=== PATIENT | female | born 1995 | race Caucasian/White ===

== ENCOUNTER 2018-01-01 16:40 | Emergency (ER) | payer OTHER ==
[~2018-01-01] VITALS: Ht 175.3 cm; Wt 60.0 kg
[~2018-01-01 16:40] MED LIST: CEPH500C3 PO
[2018-01-01 17:11] VITALS: BP 133/72; PULSE 87; RESP 18; TEMP 98.8; O2SAT 99
== END 2018-01-01 20:32 | disposition left against medical advice (07) ==
LOC: NED 16:40
DX: Z03.89 Encounter for observation for other suspected diseases and conditions ruled out (principal)
CPT/HCPCS: 99281

== ENCOUNTER 2018-01-11 06:18 | Emergency (ER) | payer OTHER ==
[~2018-01-11] VITALS: Ht 172.7 cm; Wt 60.0 kg
[2018-01-11 06:37] VITALS: BP 115/56; PULSE 70; RESP 18; TEMP 98.6; O2SAT 100
--- NOTE | 2018-01-11 07:02 | PD ---
HPI Chief Complaint: Cold / Flu Symptoms Time Seen by Provider: 06:59 Travel History International Travel<30 days: No Contact w/Intl Traveler<30days: No Traveled to known affect area: No History of Present Illness HPI 22-year-old female presents to the emergency department with 2 complaints. First complaint of bumps and pain to the back of her tongue 2 days. Mentions she was treated for strep throat twice 1 month ago. Also states she was tested for mono and the test was negative. She denies sore throat, lump in throat, difficulty swallowing, unusual drooling. Reports right ear pain. Denies cough , but reports coughing up yellow colored phlegm. Denies nasal congestion. Denies fevers, vomiting. Second complaint is right flank pain. Says she has chronic flank pain, prior to starting her periods, but her period just ended. She denies dysuria, urgency, frequency, hematuria. Does mention she noticed that her urine was cloudy this morning. Denies abdominal pain. Denies abnormal vaginal discharge or odor. Rates throat pain 8/. Has not taken any medications or trying treatments to alleviate her symptoms. No known relieving factors. Tongue pain is aggravated by swallowing. No known allergies. Primary care provider is Dr. Joseph. Denies significant past medical history. Has no other medical complaints. No other modifying factors or associated signs and symptoms. PFSH Past Medical History Medical History: Denies Significant Hx Diminished Hearing: No Immunizations Current: Yes ?: Not LMP: 01/06/18 Past Surgical History Surgical History: No Previous Surgery Social History Alcohol Use: Yes Tobacco Use: No Substance Use: No Allergies-Medications (Allergen,Severity, Reaction): Coded Allergies: No Known Allergies (Unverified , 01/27/15) Reported Meds & Prescriptions Reported Meds & Active Scripts Active Ibuprofen 800 Mg Tab 800 Mg PO Q6HR PRN Magic Mouthwash Pediatric/Adult Liq (Lidocaine/Diphenhydr/Alum/Mg/Simeth) 60 Ml Susp 5 Ml SWISH-SWAL Q3HR PRN Each 5mL contains: Diphenydramine 4.5mg, Viscous Lidocaine 2% 10mg, Maalox Advanced Regular Strength 2.7ml Pyridium (Phenazopyridine HCl) 100 Mg Tab 100 Mg PO Q8H PRN 3 Days Keflex (Cephalexin) 500 Mg Cap 500 Mg PO Q12H 7 Days Keflex (Cephalexin Monohydrate) 500 Mg Cap 1 Tab PO Q6 Review of Systems Except as stated in HPI: all other systems reviewed are Neg Physical Exam Narrative GENERAL: Well-nourished, well-developed female patient, in no acute distress; afebrile, nontoxic-appearing SKIN: Warm and dry. No rash. HEAD: Atraumatic. Normocephalic. EYES: Pupils equal and round. No scleral icterus. No injection or drainage. ENT: Mucosa pink and moist. No erythema or exudates. No uvular edema. No uvular , palatal, or tonsillar deviation. Airway patent. EARS: Bilateral pinnae and external canals appear within normal limits. Bilateral tympanic membranes without erythema, dullness or perforation. NECK: Trachea midline. No lymphadenopathy. CARDIOVASCULAR: Regular rate and rhythm. No murmur appreciated. RESPIRATORY: No accessory muscle use. Clear to auscultation. Breath sounds equal bilaterally. No retractions or tachypnea. GASTROINTESTINAL: Abdomen soft, non-tender, nondistended. Hepatic and splenic margins not palpable. Bowel sounds are active 4 quadrants. BACK: Right CVA tenderness. MUSCULOSKELETAL: No obvious deformities. No clubbing. No cyanosis. No edema. NEUROLOGICAL: Awake and alert. Oriented 3. No obvious cranial nerve deficits. Motor grossly within normal limits. Normal speech. Moves all extremities. 5/5 strength to all extremities. PSYCHIATRIC: Appropriate mood and affect; insight and judgment normal. Data Data Last Documented VS Vital Signs Date Time Temp Pulse Resp B/P (MAP) Pulse Ox O2 Delivery O2 Flow Rate FiO2 01/11/18 09:15 67 17 100/50 (67) 98 01/11/18 06:37 98.6 Orders Orders Group A Rapid Strep Screen (01/11/18 07:10) Urinalysis - C+S If Indicated (01/11/18 07:10) Ed Urine Pregnancytest Poc (01/11/18 07:10) Urine Culture (01/11/18 07:15) Strep Culture (Group A) (01/11/18 07:15) Ed Discharge Order (01/11/18 08:34) Lidocaine 1% Inj (50 Ml) (Xylocaine 1% I (01/11/18 08:45) Ceftriaxone Inj (Rocephin Inj) (01/11/18 08:45) Lidocaine 1% Inj (Xylocaine 1% Inj) (01/11/18 08:38) Labs Laboratory Tests Test 01/11/18 07:15 Urine Color YELLOW Urine Turbidity HAZY Urine pH 6.0 Urine Specific [place] 1.017 Urine Protein NEG mg/dL Urine Glucose (UA) NEG mg/dL Urine Ketones NEG mg/dL Urine Occult Blood SMALL Urine Nitrite NEG Urine Bilirubin NEG Urine Urobilinogen LESS THAN 2.0 MG/DL Urine Leukocyte Esterase LARGE Urine RBC 5 /hpf Urine WBC /hpf Urine WBC Clumps MANY Urine Squamous Epithelial Cells > 8 /hpf Urine Bacteria OCC /hpf Urine Mucus FEW /lpf Microscopic Urinalysis Comment CULTURE INDICATED MDM Medical Decision Making Medical Screen Exam Complete: Yes Emergency Medical Condition: Yes Medical Record Reviewed: Yes Differential Diagnosis Tongue pain, sore throat, strep pharyngitis, viral pharyngitis, pyelonephritis, UTI, chronic flank pain Narrative Course 22-year-old female with pain and lump to the back of her tongue. She was treated for strep throat twice 2 months ago. She reports having a mono screen done which was negative. Patient has right-sided CVA tenderness on exam. Noticed that her urine was cloudy this morning. Denies dysuria, fever, vomiting. Rapid strep and urinalysis ordered. I offered the patient pain medication and she declined. Rapid strep negative. Urinalysis with signs of infection. Reflex to culture. Rocephin 1 g IM administered in the ER. Keflex, ibuprofen, Magic mouthwash prescribed for home. Instructed patient to follow-up with ENT. Instructed patient to follow up with primary care provider. Patient verbalizes understanding and agreement with treatment plan. Patient is medically cleared and stable for discharge. Discussed reasons to return to the emergency department. Patient agrees with treatment plan. The patients vital signs are stable and the patient is stable for outpatient follow-up and treatment. Patient discharged home, stable and in no acute distress. Diagnosis Primary Impression: Tongue pain Additional Impression: UTI (urinary tract infection) Qualified Codes: N39.0 - Urinary tract infection, site not specified Referrals: Ear / Nose / Throat Specialist Primary Care Physician Patient Instructions: General Instructions, Urinary Tract Infection in Women ( ED) Departure Forms: Tests/Procedures, Work Release Enter return to work date: Jan 13, 2018 Additional Instructions: Take antibiotics as prescribed and complete full course Take Pyridium for bladder spasms: Pyridium will turn your urine bright orange Drink plenty of fluids Maintain good personal hygiene Follow-up with primary care provider Return to the emergency department immediately with worsening of symptoms Ibuprofen or Tylenol as directed and as needed to reduce fever; may alternate ibuprofen and Tylenol as needed every 3 hours to minimize fever [id number] cold/flu medications as directed and as needed for symptom management Get plenty of sleep/rest Drink plenty of fluids to prevent dehydration; such as Gatorade, Powerade, Pedialyte [place] diet to encourage nutrition such as crackers, fruit, applesauce, toast, soup etc. Use an air humidifier/turn off ceiling fans Follow-up with your primary care provider within 1 day Return immediately to the emergency department with worsening of symptoms Med/Other Pt SpecificInfo: Prescription(s) given Scripts Ibuprofen (Ibuprofen) 800 Mg Tab 800 MG PO Q6HR Y for PAIN, #30 TAB 0 Refills Prov: Katharine Son 01/11/18 Csmyxplqlqldizg-Pysgeqtwb-Tem-Alum-Simeth Liq (Magic Mouthwash Pediatric/Adult Liq) 60 Ml Susp 5 ML SWISH-SWAL Q3HR Y for SORE THROAT, #60 ML 0 Refills Each 5mL contains: Diphenydramine 4.5mg, Viscous Lidocaine 2% 10mg, Maalox Advanced Regular Strength 2.7ml Prov: Katharine Son 01/11/18 Phenazopyridine (Pyridium) 100 Mg Tab 100 MG PO Q8H Y for DYSURIA for 3 Days, #9 TAB 0 Refills Prov: Katharine Son 01/11/18 Cephalexin (Keflex) 500 Mg Cap 500 MG PO Q12H for Infection for 7 Days, #14 CAP 0 Refills Prov: Katharine Son 01/11/18 Disposition: 01 DISCHARGE HOME Condition: Stable Katharine Son Jan 11, 2018 07:02
[2018-01-11 07:52] LABS: BILIRUBIN, URINE NEG (NEG); BLOOD, URINE SMALL (NEG); GLUCOSE,URINE NEG (NEG); KETONE, URINE NEG (NEG); NITRITE,URINE NEG (NEG); URINE COLOR YELLOW (YELLW/STRAW); URINE LEUKOCYTE ESTERASE LARGE (NEG)
[2018-01-11 07:59] LABS: MUCUS URINE FEW /lpf (OCC); WHITE BLOOD CELL CLUMPS MANY
[2018-01-11 08:01] LABS: BACTERIA, URINE OCC /hpf; SQUAMOUS EPITHELIAL CELL URINE > 8 /hpf (0-5)
[2018-01-11] MEDS ORDERED: PHEN0.4T PO (08:33)
[2018-01-11] MEDS ORDERED: IBUP1TAB7 PO (08:33)
[2018-01-11] MEDS ORDERED: MAGICPED SWISH-SWAL (08:33)
[2018-01-11] MEDS ORDERED: CEPH-460 PO (08:33)
[2018-01-11] MEDS ORDERED: LIDOCAINE HCL 1% 20 ML VIAL ONE (08:38)
[2018-01-11] MEDS ORDERED: LIDOCAINE HCL 1% 50 ML VIAL IM ONE (08:45)
[2018-01-11 09:15] VITALS: BP 100/50
== END 2018-01-11 09:37 | disposition home or self-care (01) ==
LOC: NEPD 06:18
DX: K14.6 Glossodynia (principal); N39.0 Urinary tract infection, site not specified
CPT/HCPCS: 81001; 84703; 87077; 87081; 87086; 87186; 87880; 96372; 99284; J0696